=== PATIENT | male | born 2000 | race Hispanic/Latino ===

== ENCOUNTER 2024-05-26 16:55 | Emergency (ER) | payer SELFPAY ==
[~2024-05-26] VITALS: Ht 167.6 cm; Wt 68.0 kg
[2024-05-26 18:03] VITALS: BP 127/80
[2024-05-26] MEDS ORDERED: Diph, Acellular Pertussis, Tet 0.5 ML/VIAL (Tdap) SDV IM ONE (18:25)
[2024-05-26 20:56] VITALS: BP 127/80
== END 2024-05-26 20:56 | disposition home or self-care (01) | DRG 605 ==
LOC: ED 16:55
PROC: 0HQ0XZZ Repair Scalp Skin, External Approach (ICD-10-PCS; principal; 2024-05-26)
DX: S01.01XA Laceration without foreign body of scalp, initial encounter (principal); W22.8XXA Striking against or struck by other objects, initial encounter

== ENCOUNTER 2024-06-05 17:09 | Emergency (ER) | payer SELFPAY ==
[~2024-06-05] VITALS: Ht 167.6 cm; Wt 74.0 kg
[2024-06-05 17:23] VITALS: BP 134/87
[2024-06-05 17:30] VITALS: BP 115/77
[2024-06-05 18:00] VITALS: BP 111/69
[2024-06-05 18:18] VITALS: BP 111/69
== END 2024-06-05 18:20 | disposition home or self-care (01) | DRG 950 ==
LOC: ED 17:09
DX: S01.01XD Laceration without foreign body of scalp, subsequent encounter (principal); X58.XXXD Exposure to other specified factors, subsequent encounter